=== PATIENT | female | born 1980 | race Caucasian/White ===

== ENCOUNTER 2016-12-12 12:43 | Day surgery (SDC) | payer MEDICARE, OTHER ==
[2016-12-09 12:51] VITALS: BMI 35.5
--- NOTE | 2016-12-12 06:14 | P.GSHP ---
History of Present Illness H&P Date: 12/12/16 CHIEF COMPLAINT: Abdominal wall tumor to the abdomen and bilateral flanks. HISTORY OF PRESENT ILLNESS: The patient is a 36 year-old female who presents with a 7 x 4 cm abdominal wall tumor of the lower abdomen. She reports increased growth and pain. Separately she also reports similar symptoms and gross along the bilateral flanks. She presents today for surgical excision. PAST MEDICAL HISTORY: Please see list. PAST SURGICAL HISTORY: Please see list. MEDICATIONS: Please see list. ALLERGIES: Please see list. SOCIAL HISTORY: No illicit drug use FAMILY HISTORY: No reports of Crohn disease or ulcerative colitis. REVIEW OF ORGAN SYSTEMS: CONSTITUTIONAL: No reports of fevers or chills. GI: Denies any blood in stools or constipation. PHYSICAL EXAM: VITAL SIGNS: Stable Musculoskeletal: No clubbing cyanosis or edema. SKIN: Subcutaneous tumors of the bilateral flanks over 4 cm. Lower abdominal wall tumor over 8 cm. GENERAL: Well developed and in no acute distress. Pleasant. HEENT: No sclera icterus. Extraocular movements grossly intact. Moist buccal mucosa. Head is atraumatic, normocephalic. Hears conversational speech. No nasal drainage. NECK: Supple without lymphadenopathy. No JV distention. CHEST: Non-labored respirations and equal bilateral excursions. CARDIOVASCULAR: Regular rate and rhythm. Palpable 2+ radial pulses. ABDOMEN: Soft. Non-tender. Nondistended. NEUROLOGIC: No focal or lateralizing signs. PSYCH: Appropriate affect. Alert and oriented to person, place and time. ASSESSMENT: 1. Lower abdominal wall subcutaneous tumor over 8 cm. 2. Bilateral flank subcutaneous tumor 4 cm. PLAN: 1. Will proceed of excision of subcutaneous tumor of the lower abdomen and bilateral flanks. 2. DVT prophylaxis. 3. Antibiotic prophylaxis. 4. Time of recovery, at least 3 weeks. Past Medical History Past Medical History: GERD/Reflux, Hypertension, Thyroid Disorder History of Any Multi-Drug Resistant Organisms: None Reported Past Surgical History: Bariatric Surgery, Cholecystectomy, Hysterectomy, Orthopedic Surgery Additional Past Surgical History / Comment(s): RT ANKLE SX X 3. RT KNEE SX X 2. GASTRIC SLEEVE. COLONOSCOPY. EGD. PANNICULECTOMY Past Anesthesia/Blood Transfusion Reactions: Postoperative Nausea & Vomiting ( PONV) Past Psychological History: Anxiety Additional Psychological History / Comment(s): ASPERGERS/AUTISM Smoking Status: Never smoker Past Alcohol Use History: Rare Past Drug Use History: None Reported - Past Family History Mother Family Medical History: No Reported History Medications and Allergies Home Medications Medication Instructions Recorded Confirmed Type Cetirizine HCl [Zyrtec] 10 mg PO HS 12/09/16 12/09/16 History Estrogens, Conjugated [Premarin] 0.3 mg PO DAILY 12/09/16 12/09/16 History Fluticasone Nasal [place] [Flonase 2 spr EA NOSTRIL BID 12/09/16 12/09/16 History Nasal [place]] Hydrochlorothiazide 12.5 mg PO DAILY 12/09/16 12/09/16 History LORazepam [Ativan] 1 mg PO DAILY PRN 12/09/16 12/09/16 History Levothyroxine Sodium [Synthroid] 50 mcg PO DAILY 12/09/16 12/09/16 History Lisinopril [Zestril] 5 mg PO HS 12/09/16 12/09/16 History Montelukast [Singulair] 10 mg PO HS 12/09/16 12/09/16 History Omeprazole [PriLOSEC] 20 mg PO HS 12/09/16 12/09/16 History buPROPion SR [Wellbutrin Sr] 150 mg PO BID 12/09/16 12/09/16 History Allergies Allergy/AdvReac Type Severity Reaction Status Date / Time adhesive tape AdvReac Itching Verified 12/09/16 12:38
[~2016-12-12 12:43] MED LIST: DEXAMETHASONE SOD PHOSPHATE 10 MG/ML 1 ML VIAL IV ONE; HEPARIN SODIUM,PORCINE 5,000 UNIT/ML 1 ML VIAL SQ ONE; LACTATED RINGERS 1,000 ML IV SCH; MIDAZOLAM 2 MG/2 ML VIAL IV PRN; ONDANSETRON 4 MG/2 ML VIAL IVP ONE; Pre Op ABX Message 1 EACH MISC MISCELLANE ONE; SCOPOLAMINE 1.5MG/72HR PATCH TRANSDERM ONE; ceFAZolin 2 GM in SODIUM CHLORIDE 0.9% 100 ML IVPB ONE
[2016-12-12] MEDS ORDERED: ACETAMINOPHEN TAB 500 MG TAB PO ONE (13:00)
[2016-12-12 14:01] LABS: Glucose,Whole Blood 88 mg/dL (75-99)
[2016-12-12] MEDS ORDERED: LIDOCAINE 1% 20 ML VIAL (10MG/ML) FOR IV START INTRADERMA ONE (14:09)
[2016-12-12] MEDS ORDERED: ACETAMINOPHEN IV (For NPO) 1,000 MG in EMPTY BAG 1 BAG IVPB STA (14:56)
[2016-12-12] MEDS ORDERED: MIDAZOLAM 2 MG/2 ML VIAL ONE (16:49)
[2016-12-12] MEDS ORDERED: fentaNYL (PF) 50 MCG/ML 2 ML AMP ONE (16:49)
[2016-12-12] MEDS ORDERED: SUCCINYLCHOLINE CHLORIDE 100 MG/5 ML SYR IV ONE (16:49)
[2016-12-12] MEDS ORDERED: GLYCOPYRROLATE 0.2 MG/ML 2 ML VIAL ONE (16:49)
[2016-12-12] MEDS ORDERED: LIDOCAINE 1% INJ 10MG/ML (20 ML MDV) ONE (16:49)
[2016-12-12] MEDS ORDERED: NEOSTIGMINE 1 MG/ML 10 ML VIAL ONE (16:49)
[2016-12-12] MEDS ORDERED: PROPOFOL 10 MG/ML 20 ML VIAL IV ONE (16:49)
[2016-12-12] MEDS ORDERED: ROCURONIUM BROMIDE 10 MG/ML 10 ML VIAL IV ONE (16:49)
[2016-12-12] MEDS ORDERED: BUPIVACAIN-EPI 0.25%-1:200,000 30 ML VIAL SQ ONE (17:20)
[2016-12-12] MEDS ORDERED: LACTATED RINGERS 1,000 ML IV ONE (17:43)
--- NOTE | 2016-12-12 18:39 | P.PCN ---
Date of Procedure: 12/12/16 Preoperative Diagnosis: Painful subcutaneous lower abdominal wall tumor, bilateral flank mass Postoperative Diagnosis: Same Procedure(s) Performed: 1. Excision of complex midline lower abdominal wall tumor 25 x 4 cm, subcutaneous to fascia with complex closure. 2. Excision of complex right flank deep subcutaneous tumor 10 x 4 cm with complex closure. 3. Excision of complex left flank deep subcutaneous tumor 11 x 4 cm with complex closure Anesthesia: GETA, local Surgeon: Jossie Mcfadden Estimated Blood Loss (ml): 50 Pathology: other (Lateral abdominal wall subcutaneous to fascia tumor, bilateral flank mass) Condition: stable Disposition: floor
[2016-12-12] MEDS ORDERED: NALOXONE 0.4 MG/ML 1 ML VIAL IV PRN (18:44)
[2016-12-12] MEDS ORDERED: PROMETHAZINE 25 MG TAB PO PRN (18:45)
[2016-12-12] MEDS ORDERED: HYDROcodone/APAP 5-325MG 1 EACH TAB PO PRN (18:45)
[2016-12-12] MEDS ORDERED: KETOROLAC 30 MG/ML 1 ML VIAL IVP SCH (18:45)
[2016-12-12 18:49] VITALS: TEMP 97.9
[2016-12-12] MEDS: HYDROmorphone 1 MG/ML 1 ML SYRINGE IVP PRN ×2 (18:56→19:12)
[2016-12-12] MEDS ORDERED: HYDROcodone/APAP 5-325MG 1 EACH TAB PO ONE (19:53)
[2016-12-12 20:24] VITALS: BP 99/59; PULSE 68; RESP 18
--- NOTE | 2016-12-17 22:06 | P.OP ---
Date of Procedure: 12/12/16 Description of Procedure: SURGEON: GENESIS LIM MD PREOPERATIVE DIAGNOSES: 1. Morbid obesity due to excess caloric intake. 2. Body mass index 35.5. 3. Status post sleeve gastrectomy. 4. Lower midline subcutaneous abdominal wall tumor 20 x 4 cm. 5. Left flank subcutaneous tumor over 10 cm. 6. Right flank subcutaneous tumor over 9 cm. POSTOPERATIVE DIAGNOSES: 1. Morbid obesity due to excess caloric intake. 2. Body mass index 35.5. 3. Status post sleeve gastrectomy. 4. Lower midline subcutaneous abdominal wall tumor 20 x 4 cm. 5. Left flank subcutaneous tumor over 10 cm. 6. Right flank subcutaneous tumor over 9 cm. OPERATION: 1. Excision of complex midline lower abdominal wall tumor 25 x 4 cm, subcutaneous tissue to fascia with complex closure. 2. Excision of complex right flank deep subcutaneous tumor 10 x 4 cm with complex closure. 3. Excision of complex left flank deep subcutaneous tumor 11 x 4 cm with complex closure ANESTHESIA: General with 0.25% sensorcaine with epinephrine and normal saline mixture. ESTIMATED BLOOD LOSS: 50 mL SPECIMENS REMOVED: 1. Lower midline subcutaneous tumor. 2. Left flank subcutaneous tumor. 3. Right flank subcutaneous tumor. COMPLICATIONS: None. CONDITION: Stable. OPERATIVE FINDINGS: 1. Lower midline subcutaneous tumor to the fascia excised. 2. Left flank deep subcutaneous tumor. 3. Right flank deep subcutaneous tumor. INDICATIONS: The patient is a 36-year-old female who presents with painful abdominal wall tumors along the bilateral flank including her lower abdomen. She reports increased abdominal pain affecting her activities of daily living as well as movement. She had requested surgical excision of these painful tumors along the lower abdomen and bilateral flank. Benefits and risks of the procedure including bleeding, infection, chronic pain, cosmetic deformity, need for further surgery were described at length. Informed consent was obtained. DESCRIPTION: In the preanesthesia care unit the patient was marked with an indelible marker. She had also been given heparin subcutaneously. The patient was brought into the operating room and laid in supine position. After general induction, the abdomen was then prepped and draped in standard sterile fashion using ChloraPrep. The skin was prepped as far laterally to the back, inferiorly to the upper thighs and superiorly to above the bilateral breasts. A timeout protocol was confirmed with the surgical team regarding patient's name , procedure to be performed, including preoperative medications. She had received Ancef 2 grams IV antibiotics. Once the time-out protocol was confirmed with the surgical team, the patient was re-marked with indelible marker. Initial attention was brought to the lower abdomen along the suprapubic area where a palpable tumor was found. An elliptical incision of 25 cm x 4 cm was deepened down to the subcutaneous tissue and fascia for complete resection of the painful nodular tumors. Hemostasis was checked with electro-Bovie cautery. The wound was closed after undermining and developing subcutaneous tissue plane to facilitate complete closure. Along the superficial fascial system, multiple interrupted 0 Vicryl's were placed. Next, attention was brought to the left flank whereby palpable subcutaneous soft tissue tumor was identified deep in the subcutaneous tissue. In a similar fashion, an elliptical incision was taken to completely excise the painful nodular tumor of an area of 11 cm x 4 cm. The wound was similarly developed along subcutaneous plane for complete closure using 0 Vicryl for the deep superficial fascial system. Attention was also brought to the left flank whereby subcutaneous tumor nodule was excised of 10 x 4 cm . Soft tissue flaps were mobilized for closure without tension. 0-Vicryl interrupted was placed. Each incision were temporarily closed using skin shirlene. Once reapproximated, the skin was closed in layers using 0 Vicryl for the superficial fascial system followed by running 3-0 Monocryl for the deep dermis. Antibiotic Optifoam sponge dressing was placed over the incision after Dermabond tape and liquid was applied. At the end of the procedure, the needle, sponge and instrument count was verified correct. An abdominal binder was placed and marked. The patient was taken to the postanesthesia care unit in stable condition, awake and extubated.
== END 2016-12-12 20:41 | disposition home or self-care (01) ==
LOC: OR 12:43
PROVIDERS: ATTEND Surgery Plastic and Reconstructive Surgery
DX: L90.5 Scar conditions and fibrosis of skin (principal); L08.9 Local infection of the skin and subcutaneous tissue, unspecified; I10 Essential (primary) hypertension; E07.9 Disorder of thyroid, unspecified; F32.9 Major depressive disorder, single episode, unspecified; K21.9 Gastro-esophageal reflux disease without esophagitis; Z79.890 Hormone replacement therapy; Z79.51 Long term (current) use of inhaled steroids; Z79.899 Other long term (current) drug therapy; Z98.84 Bariatric surgery status; Z90.710 Acquired absence of both cervix and uterus
CPT/HCPCS: 22903; 13101 ×3; 13102 ×6; 11406 ×2; 88305; J2250; J1644; J1100; J2710; J0690; J2405; J2001; J3010; J1885; J1170; J0131; J0330; J2704